=== PATIENT | male | born 1950 | race African-American/Black ===

== ENCOUNTER 2021-07-21 05:15 | Inpatient (IN) | payer MEDICARE, MEDICAID ==
[2021-07-21] VITALS (12 sets, daily range): BP systolic 100–153; BP diastolic 46–107
[~2021-07-21] VITALS: Ht 195.6 cm; Wt 96.6 kg
[~2021-07-21 05:15] MED LIST: ATOR40TA70 PO; CHOL100044 PO; DICL100G16 TP; IBUP-2030 PO; LISI40TA13 PO; VERA240C2 PO
[2021-07-21 06:00] LABS: CHLORIDE 107 mEq/L (98-107)
[2021-07-21 06:09] LABS: BASOPHILS % 0.6 % (0.0-2.0); EOSINOPHILS % 9.3 % (0.0-5.0); HEMATOCRIT. 42.8 % (42.0-52.0); LYMPHOCYTES % 35.2 % (20.0-50.0); MEAN CORPUSCULAR HEMOGLOBIN 28.5 pg (28.0-32.0); MEAN CORPUSCULAR VOLUME 81.2 fL (80.0-94.0); MEAN PLATELET VOLUME 9.3 fl (7.4-10.4); MONOCYTES % 9.5 % (2.0-8.0); NEUTROPHILS % 45.4 % (40.0-76.0); PLATELET 129 x1000/uL (130-400); RED BLOOD CELL COUNT 5.26 mill/uL (4.7-6.1); RED CELL DISTRIBUTION WIDTH 13.7 % (11.6-14.6)
[2021-07-21] MEDS ORDERED: LACTATED RINGERS 1,000 ML IV SCH (06:15)
[2021-07-21] MEDS ORDERED: LIDOCAINE HCL/EPINEPHRINE 1%-EPI 1:100,000 20 ML VIAL ONE (06:34)
[2021-07-21] MEDS ORDERED: GENTAMICIN SULF 40MG/ML 2ML VIAL ONE (06:34)
[2021-07-21] MEDS ORDERED: THROMBIN (BOVINE) 5000 UNITS/VIAL TOP ONE (06:35)
[2021-07-21 06:40] LABS: CLARITY URINE CLEAR (CLEAR); COLOR URINE YELLOW (YELLOW); KETONES URINE TRACE (NEGATIVE); LEUKOCYTE ESTERASE URINE NEGATIVE (NEGATIVE); NITRITE URINE NEGATIVE (NEGATIVE); OCCULT BLOOD URINE NEGATIVE (NEGATIVE); PH URINE 5.5 (4.5-8.0); PROTEIN URINE NEGATIVE (NEGATIVE); SPECIFIC GRAVITY URINE 1.025 (1.005-1.030)
[2021-07-21] MEDS ORDERED: NEOSTIGMINE METHYLSULFATE 1MG/ML 10 ML VIAL ONE (07:06)
[2021-07-21] MEDS ORDERED: ROCURONIUM BROMIDE 10MG/ML VIAL 5ML IV ONE ×2 (07:06→09:01)
[2021-07-21] MEDS ORDERED: FENTANYL CITRATE/PF 50MCG/ML 2ML VIAL ONE (07:06)
[2021-07-21] MEDS ORDERED: GLYCOPYRROLATE 0.2 MG/ML 2ML VIAL ONE ×3 (07:07→09:53)
[2021-07-21] MEDS ORDERED: MIDAZOLAM HCL 2 MG/2 ML VIAL ONE (07:07)
[2021-07-21] MEDS ORDERED: PROPOFOL 200MG/20ML VIAL IV ONE (07:07)
[2021-07-21] MEDS ORDERED: HYDROMORPHONE HCL/PF 2MG/ML (OR) ONE (07:36)
[2021-07-21] MEDS ORDERED: DEXAMETHASONE 4MG/ML 1ML VIAL ONE (07:36)
[2021-07-21] MEDS ORDERED: ONDANSETRON HCL 4MG/2ML INJ ONE (07:36)
[2021-07-21] MEDS ORDERED: MEPERIDINE HCL/PF 25MG/ML CPJ IV PRN (08:30)
[2021-07-21] MEDS ORDERED: ONDANSETRON HCL 4MG/2ML INJ IV PRN (08:30)
[2021-07-21] MEDS ORDERED: LABETALOL 5MG/ML SYR 20 MG/4 ML SYRINGE IV PRN (08:30)
[2021-07-21 08:32] LABS: BG BASE EXCESS -1.2 mmol/L (-2.0-2.0); BG CARBOXYHEMOGLOBIN 0.7 % (0.5-1.5); BG DEOXYHEMOGLOBIN 0.6 % (0.0-5.0); BG FRACTION INSPIRED OXYGEN 100; BG HCO3 ACT 24.7 mmol/L (22.0-26.0); BG METHEMOGLOBIN 0.4 % (0.0-1.5); BG OXYGEN SATURATION 99.4 % (92.0-98.5); BG OXYHEMOGLOBIN 98.3 % (94.0-97.0); BG PCO2 45.7 mmHg (35.0-45.0); BG PO2 330.5 mmHg (75.0-100.0); BG SAMPLE SITE ALINE; BG TOTAL HEMOGLOBIN 13.7 g/dL (12.0-18.0); BG VENT MODE VENT - AC
[2021-07-21] MEDS ORDERED: GABA-532 PO (09:42)
[2021-07-21] MEDS ORDERED: ATEN50TA PO (09:42)
[2021-07-21] MEDS ORDERED: NICARDIPINE 100 MG in SODIUM CHLORIDE 0.9% 60 ML IV PRN (10:00)
[2021-07-21] MEDS ORDERED: MORPHINE SULFATE 2 MG/ML CPJ (NOT FOR IM USE) IV PRN (10:00)
[2021-07-21] MEDS ORDERED: CLON0.2T PO (10:16)
[2021-07-21] MEDS: HYDROMORPHONE HCL/PF 2MG/ML CPJ IV PRN ×3 (10:23→15:59)
[2021-07-21] MEDS ORDERED: NALOXONE INJ IV PRN (11:15)
[2021-07-21] MEDS ORDERED: ONDANSETRON INJ IV PRN (11:15)
[2021-07-21] MEDS ORDERED: HYDROMORPHONE PCA 10MG/50ML IV PRN (11:15)
[2021-07-21] MEDS: DEXT 5%/LACTATED RINGERS 1,000 ML IV SCH (12:30)
[2021-07-21] MEDS ORDERED: CEFAZOLIN SODIUM 1000MG/VIAL IV SCH (14:00)
[2021-07-21] MEDS: CEFAZOLIN 1000MG PREMIX 50 ML IV SCH ×2 (15:18→23:14)
[2021-07-22] VITALS (60 sets, daily range): BP systolic 92–168; BP diastolic 42–98
[2021-07-22 07:06] LABS: BASOPHILS % 0.2 % (0.0-2.0); EOSINOPHILS % 0.1 % (0.0-5.0); HEMATOCRIT. 36.2 % (42.0-52.0); HEMOGLOBIN. 12.6 g/dL (14.0-18.0); LYMPHOCYTES % 8.4 % (20.0-50.0); MEAN CORPUSCULAR VOLUME 80.1 fL (80.0-94.0); MEAN PLATELET VOLUME 9.3 fl (7.4-10.4); MONOCYTES % 9.8 % (2.0-8.0); NEUTROPHILS % 81.5 % (40.0-76.0); PLATELET 118 x1000/uL (130-400); RED BLOOD CELL COUNT 4.52 mill/uL (4.7-6.1); RED CELL DISTRIBUTION WIDTH 13.5 % (11.6-14.6)
[2021-07-22 07:32] LABS: CHLORIDE 106 mEq/L (98-107)
[2021-07-22] MEDS: GABAPENTIN 300MG CAPSULE PO SCH ×3 (09:02→21:28)
[2021-07-22] MEDS: CHOLECALCIFEROL (D3) 1000 UNIT TABLET PO SCH (09:02)
[2021-07-22] MEDS: VERAPAMIL HCL 120MG TABLET PO SCH ×3 (09:03→21:29)
[2021-07-22] MEDS: ATENOLOL 50 MG TABLET PO SCH (09:03)
[2021-07-22] MEDS: LISINOPRIL 40MG TABLET PO SCH (09:03)
[2021-07-22] MEDS: CEFAZOLIN 1000MG PREMIX 50 ML IV SCH ×3 (09:04→21:33)
[2021-07-22] MEDS: DEXT 5%/LACTATED RINGERS 1,000 ML IV SCH ×2 (10:24→17:55)
[2021-07-22] MEDS: CLONIDINE 0.2MG TABLET PO SCH ×2 (14:00→21:28)
[2021-07-22] MEDS: ATORVASTATIN CALCIUM 40MG TABLET PO SCH (21:30)
[2021-07-23] VITALS (7 sets, daily range): BP systolic 93–146; BP diastolic 50–96
[2021-07-23] MEDS: DEXT 5%/LACTATED RINGERS 1,000 ML IV SCH (04:16)
[2021-07-23] MEDS: CEFAZOLIN 1000MG PREMIX 50 ML IV SCH (06:32)
[2021-07-23] MEDS: GABAPENTIN 300MG CAPSULE PO SCH ×3 (06:32→21:19)
[2021-07-23] MEDS: VERAPAMIL HCL 120MG TABLET PO SCH (06:33)
[2021-07-23] MEDS: CLONIDINE 0.2MG TABLET PO SCH (06:33)
[2021-07-23] MEDS: LISINOPRIL 40MG TABLET PO SCH (08:30)
[2021-07-23] MEDS: ATENOLOL 50 MG TABLET PO SCH (08:30)
[2021-07-23] MEDS: CHOLECALCIFEROL (D3) 1000 UNIT TABLET PO SCH (08:37)
[2021-07-23] MEDS: ACETAMINOPHEN 325MG TABLET PO PRN (08:37)
[2021-07-23] MEDS ORDERED: ATROPINE SULFATE 1MG/ML VIAL IV PRN (09:45)
[2021-07-23] MEDS ORDERED: ATROPINE SULFATE 1MG/ML VIAL IV NR (10:15)
[2021-07-23] MEDS: SODIUM CHLORIDE 0.45% 1,000 ML IV SCH ×2 (11:25→22:38)
[2021-07-23] MEDS ORDERED: NALOXONE HCL 0.4MG/ML VIAL IV PRN (11:45)
[2021-07-23] MEDS: DOPAMINE 400MG/250ML PREMIX 250 ML IV SCH (12:38)
[2021-07-23] MEDS ORDERED: CEFTRIAXONE 1,000 MG in DEXTROSE 5% WATER 50 ML IV SCH (15:00)
[2021-07-23] MEDS: ATORVASTATIN CALCIUM 40MG TABLET PO SCH (21:19)
[2021-07-23] MEDS: HYDROCODONE/ACETAMINOPHEN 5/325MG TABLET PO PRN (23:04)
[2021-07-24] VITALS (12 sets, daily range): BP systolic 129–165; BP diastolic 72–98
[2021-07-24] MEDS: DOPAMINE 400MG/250ML PREMIX 250 ML IV SCH ×2 (01:31→16:14)
[2021-07-24] MEDS: HYDROCODONE/ACETAMINOPHEN 5/325MG TABLET PO PRN ×3 (06:21→20:44)
[2021-07-24] MEDS: GABAPENTIN 300MG CAPSULE PO SCH ×3 (06:21→23:16)
[2021-07-24] MEDS: CHOLECALCIFEROL (D3) 1000 UNIT TABLET PO SCH (08:33)
[2021-07-24] MEDS: LISINOPRIL 40MG TABLET PO SCH (08:33)
[2021-07-24 08:34] LABS: BASOPHILS % 0.2 % (0.0-2.0); EOSINOPHILS % 0.9 % (0.0-5.0); HEMATOCRIT. 33.2 % (42.0-52.0); HEMOGLOBIN. 11.8 g/dL (14.0-18.0); LYMPHOCYTES % 12.4 % (20.0-50.0); MEAN CORPUSCULAR HEMOGLOBIN 28.6 pg (28.0-32.0); MEAN CORPUSCULAR VOLUME 80.8 fL (80.0-94.0); MEAN PLATELET VOLUME 9.3 fl (7.4-10.4); MONOCYTES % 12.1 % (2.0-8.0); NEUTROPHILS % 74.4 % (40.0-76.0); PLATELET 106 x1000/uL (130-400); RED BLOOD CELL COUNT 4.11 mill/uL (4.7-6.1); RED CELL DISTRIBUTION WIDTH 13.3 % (11.6-14.6)
[2021-07-24] MEDS: ACETAMINOPHEN 325MG TABLET PO PRN (08:39)
[2021-07-24 09:12] LABS: CHLORIDE 103 mEq/L (98-107)
[2021-07-24] MEDS: SODIUM CHLORIDE 0.45% 1,000 ML IV SCH (11:00)
[2021-07-24] MEDS: AMLODIPINE 5MG TABLET PO SCH ×2 (11:21→20:44)
[2021-07-24 18:40] LABS: T4 FREE 1.02 ng/dL (0.76-1.46)
[2021-07-24] MEDS: ATORVASTATIN CALCIUM 40MG TABLET PO SCH (20:43)
[2021-07-25] VITALS (13 sets, daily range): BP systolic 125–185; BP diastolic 71–98
[2021-07-25] MEDS: ACETAMINOPHEN 325MG TABLET PO PRN (00:23)
[2021-07-25] MEDS: SODIUM CHLORIDE 0.45% 1,000 ML IV SCH ×2 (00:23→13:25)
[2021-07-25] MEDS: HYDROCODONE/ACETAMINOPHEN 5/325MG TABLET PO PRN ×3 (04:15→20:04)
[2021-07-25] MEDS: GABAPENTIN 300MG CAPSULE PO SCH ×3 (06:04→21:21)
[2021-07-25 07:42] LABS: CHLORIDE 104 mEq/L (98-107)
[2021-07-25] MEDS ORDERED: POLYETHYLENE GLYCOL 3350 (17GM) 1 DOSE PACK PO SCH (09:00)
[2021-07-25] MEDS: AMLODIPINE 5MG TABLET PO SCH ×2 (09:06→21:22)
[2021-07-25] MEDS: LISINOPRIL 40MG TABLET PO SCH (09:06)
[2021-07-25] MEDS: CHOLECALCIFEROL (D3) 1000 UNIT TABLET PO SCH (09:07)
[2021-07-25] MEDS: ATORVASTATIN CALCIUM 40MG TABLET PO SCH (21:21)
[2021-07-26] VITALS (9 sets, daily range): BP systolic 146–194; BP diastolic 72–99
[2021-07-26] MEDS: SODIUM CHLORIDE 0.45% 1,000 ML IV SCH ×2 (00:52→13:27)
[2021-07-26] MEDS: GABAPENTIN 300MG CAPSULE PO SCH ×3 (05:21→20:40)
[2021-07-26] MEDS: HYDROCODONE/ACETAMINOPHEN 5/325MG TABLET PO PRN ×2 (05:22→10:08)
[2021-07-26] MEDS: CHOLECALCIFEROL (D3) 1000 UNIT TABLET PO SCH (08:49)
[2021-07-26] MEDS: AMLODIPINE 5MG TABLET PO SCH ×2 (08:49→20:41)
[2021-07-26] MEDS: LISINOPRIL 40MG TABLET PO SCH (08:49)
[2021-07-26] MEDS ORDERED: AMLO5TAB88 PO (09:35)
[2021-07-26] MEDS: MORPHINE SULFATE 2 MG/ML CPJ (NOT FOR IM USE) IV PRN ×2 (12:31→21:04)
[2021-07-26] MEDS: HYDROCODONE/ACETAMINOPHEN 10/325MG TABLET PO PRN ×2 (17:36→23:41)
[2021-07-26] MEDS: METHYL SALICYLATE/MENTHOL CREAM 85GM TOP SCH ×2 (17:36→21:03)
[2021-07-26] MEDS: LACTULOSE 20G/30ML UDC PO SCH ×2 (17:36→20:40)
[2021-07-26] MEDS: LIDOCAINE 5% PATCH TOP SCH (17:36)
[2021-07-26] MEDS: HYDRALAZINE HCL 25MG TABLET PO SCH ×2 (17:36→20:41)
[2021-07-26] MEDS: ATORVASTATIN CALCIUM 40MG TABLET PO SCH (20:41)
[2021-07-27] VITALS (8 sets, daily range): BP systolic 138–193; BP diastolic 72–107
[2021-07-27] MEDS: SODIUM CHLORIDE 0.45% 1,000 ML IV SCH ×2 (02:20→14:03)
[2021-07-27] MEDS ORDERED: AMLODIPINE 10MG TABLET PO PRN (04:45)
[2021-07-27] MEDS: GABAPENTIN 300MG CAPSULE PO SCH ×2 (05:13→14:20)
[2021-07-27] MEDS: HYDRALAZINE HCL 25MG TABLET PO SCH (05:13)
[2021-07-27] MEDS: MORPHINE SULFATE 2 MG/ML CPJ (NOT FOR IM USE) IV PRN ×2 (05:37→11:47)
[2021-07-27] MEDS: LACTULOSE 20G/30ML UDC PO SCH ×2 (08:18→13:00)
[2021-07-27] MEDS: CHOLECALCIFEROL (D3) 1000 UNIT TABLET PO SCH (08:18)
[2021-07-27] MEDS: LISINOPRIL 40MG TABLET PO SCH (08:18)
[2021-07-27] MEDS: HYDROCODONE/ACETAMINOPHEN 5/325MG TABLET PO PRN ×2 (08:19→15:52)
[2021-07-27] MEDS: METHYL SALICYLATE/MENTHOL CREAM 85GM TOP SCH ×3 (08:19→17:39)
[2021-07-27] MEDS ORDERED: AMLODIPINE 10MG TABLET PO SCH (09:00)
[2021-07-27] MEDS: LIDOCAINE 5% PATCH TOP SCH (12:20)
[2021-07-27] MEDS ORDERED: HYDRALAZINE HCL 50MG TABLET PO SCH (14:00)
[2021-07-27] MEDS ORDERED: AMLODIPINE 5MG TABLET PO SCH (21:00)
== END 2021-07-27 18:31 | DRG 459 ==
LOC: OR 05:15 → MICUSO 21:00 → 7EST 07-22 15:12 → 5EST 07-23 10:05
PROVIDERS: ADMIT Internal Medicine; ATTEND Neurological Surgery
PROC: 0SG10K1 Fusion of 2 or more Lumbar Vertebral Joints with Nonautologous Tissue Substitute, Posterior Approach, Posterior Column, Open Approach (ICD-10-PCS; principal; 2021-07-21)
PROC: 01NB0ZZ Release Lumbar Nerve, Open Approach (ICD-10-PCS; 2021-07-21)
PROC: 4A11X4G Monitoring of Peripheral Nervous Electrical Activity, Intraoperative, External Approach (ICD-10-PCS; 2021-07-21)
DX: M48.062 Spinal stenosis, lumbar region with neurogenic claudication (principal); R57.0 Cardiogenic shock; J18.9 Pneumonia, unspecified organism; G82.20 Paraplegia, unspecified; M47.16 Other spondylosis with myelopathy, lumbar region; I44.2 Atrioventricular block, complete; J98.11 Atelectasis; I10 Essential (primary) hypertension; E78.5 Hyperlipidemia, unspecified; R26.89 Other abnormalities of gait and mobility; E05.90 Thyrotoxicosis, unspecified without thyrotoxic crisis or storm; R00.1 Bradycardia, unspecified; Z20.822 Contact with and (suspected) exposure to COVID-19; G89.29 Other chronic pain; D64.9 Anemia, unspecified; R53.81 Other malaise; R26.9 Unspecified abnormalities of gait and mobility; M25.461 Effusion, right knee; Z82.49 Family history of ischemic heart disease and other diseases of the circulatory system; Z79.899 Other long term (current) drug therapy
CPT/HCPCS: 36415; 36600; 71045; 72100; 73560; 76000; 80048; 81003; 82375; 82805; 83735; 84145; 84439; 84443; 84481; 85025; 86850; 86900; 87426; 93005; 93306; 95863; 95925; 95926; 95928; 95929; 97163; 97164; 97166; 97168; 97530; C1713; C1893; J0461; J0690; J0696; J1100; J1170; J1265; J1580; J2250; J2270; J2405; J2704; J2710; J3010; J3490; J7050; J7060; J7121; C1762

== ENCOUNTER 2021-07-27 18:30 | Inpatient (IN) | payer MEDICARE, OTHER ==
[~2021-07-27] VITALS: Ht 195.6 cm; Wt 99.6 kg
[~2021-07-27 18:30] MED LIST changes: +AMLO5TAB88 PO; +GABA-532 PO; -IBUP-2030 PO; -VERA240C2 PO
[2021-07-27 19:30] VITALS: BP 149/78
[2021-07-27 20:00] VITALS: BP 149/78
[2021-07-27] MEDS ORDERED: NALOXONE HCL 0.4 MG/ML 1ML VIAL IV PRN (21:45)
[2021-07-27] MEDS ORDERED: MORPHINE SULFATE 2 MG/ML CPJ (NOT FOR IM USE) IV PRN (23:32)
[2021-07-27] MEDS: ATORVASTATIN CALCIUM 40MG TABLET PO SCH (23:52)
[2021-07-28] MEDS: GABAPENTIN 300MG CAPSULE PO SCH ×4 (00:01→21:39)
[2021-07-28] MEDS: HYDROCODONE/ACETAMINOPHEN 10/325MG TABLET PO PRN ×3 (00:01→20:22)
[2021-07-28] MEDS: HYDRALAZINE HCL 50MG TABLET PO SCH ×3 (04:57→21:40)
[2021-07-28 06:49] LABS: BASOPHILS % 0.4 % (0.0-2.0); EOSINOPHILS % 7.2 % (0.0-5.0); HEMATOCRIT. 37.3 % (42.0-52.0); HEMOGLOBIN. 12.8 g/dL (14.0-18.0); LYMPHOCYTES % 24.7 % (20.0-50.0); MEAN CORPUSCULAR HEMOGLOBIN 27.9 pg (28.0-32.0); MEAN CORPUSCULAR VOLUME 81.4 fL (80.0-94.0); MEAN PLATELET VOLUME 9.2 fl (7.4-10.4); MONOCYTES % 10.8 % (2.0-8.0); NEUTROPHILS % 56.9 % (40.0-76.0); PLATELET 170 x1000/uL (130-400); RED BLOOD CELL COUNT 4.58 mill/uL (4.7-6.1); RED CELL DISTRIBUTION WIDTH 13.1 % (11.6-14.6)
[2021-07-28] MEDS: METHYL SALICYLATE/MENTHOL CREAM 85GM TOP SCH ×4 (06:51→21:39)
[2021-07-28 06:58] LABS: CHLORIDE 101 mEq/L (98-107)
[2021-07-28 08:00] VITALS: BP 151/87
[2021-07-28] MEDS: LISINOPRIL 40MG TABLET PO SCH (08:16)
[2021-07-28] MEDS: CHOLECALCIFEROL (D3) 1000 UNIT TABLET PO SCH (08:16)
[2021-07-28] MEDS: LACTULOSE 20G/30ML UDC PO SCH ×4 (08:16→20:22)
[2021-07-28] MEDS: LIDOCAINE 5% PATCH TOP SCH (08:20)
[2021-07-28] MEDS: AMLODIPINE 5MG TABLET PO SCH ×2 (08:27→20:22)
[2021-07-28] MEDS: AMLODIPINE 10MG TABLET PO PRN ×2 (15:41→22:43)
[2021-07-28] MEDS: HYDROCODONE/ACETAMINOPHEN 5/325MG TABLET PO PRN (15:42)
[2021-07-28 16:00] VITALS: BP 170/100
[2021-07-28 16:30] VITALS: BP 143/78
[2021-07-28] MEDS: DOCUSATE SODIUM 100MG CAPSULE PO SCH (17:32)
[2021-07-28 20:00] VITALS: BP 167/97
[2021-07-28] MEDS: POLYETHYLENE GLYCOL 3350 (17GM) 1 DOSE PACK PO SCH (20:22)
[2021-07-28] MEDS: ATORVASTATIN CALCIUM 40MG TABLET PO SCH (20:22)
[2021-07-28] MEDS ORDERED: NA PHOS,M-B/NA PHOS,DI-BA ENEMA 118ML PR NR (22:45)
[2021-07-29 00:20] VITALS: BP 141/78
[2021-07-29] MEDS: HYDROCODONE/ACETAMINOPHEN 10/325MG TABLET PO PRN ×4 (02:48→23:33)
[2021-07-29] MEDS: HYDRALAZINE HCL 50MG TABLET PO SCH ×3 (05:44→21:27)
[2021-07-29] MEDS: GABAPENTIN 300MG CAPSULE PO SCH ×3 (05:45→21:26)
[2021-07-29 08:00] VITALS: BP 146/71
[2021-07-29] MEDS: LACTULOSE 20G/30ML UDC PO SCH ×4 (08:53→20:24)
[2021-07-29] MEDS: METHYL SALICYLATE/MENTHOL CREAM 85GM TOP SCH ×4 (08:53→20:23)
[2021-07-29] MEDS: LIDOCAINE 5% PATCH TOP SCH (08:54)
[2021-07-29] MEDS: CHOLECALCIFEROL (D3) 1000 UNIT TABLET PO SCH (08:54)
[2021-07-29] MEDS: AMLODIPINE 5MG TABLET PO SCH ×2 (08:54→20:24)
[2021-07-29] MEDS: DOCUSATE SODIUM 100MG CAPSULE PO SCH ×2 (08:54→16:34)
[2021-07-29] MEDS: LISINOPRIL 40MG TABLET PO SCH (08:55)
[2021-07-29] MEDS ORDERED: SORBITOL 70% SOLN 30ML PO SCH (10:30)
[2021-07-29] MEDS ORDERED: BISACODYL 10MG SUPP PR SCH (10:30)
[2021-07-29 20:00] VITALS: BP 125/60
[2021-07-29] MEDS: ATORVASTATIN CALCIUM 40MG TABLET PO SCH (20:23)
[2021-07-29] MEDS: POLYETHYLENE GLYCOL 3350 (17GM) 1 DOSE PACK PO SCH (20:23)
[2021-07-29] MEDS ORDERED: MAGNESIUM HYDROXIDE 400MG/5ML 30ML UDC PO NR (23:25)
[2021-07-30] MEDS: HYDROCODONE/ACETAMINOPHEN 10/325MG TABLET PO PRN ×3 (05:36→19:24)
[2021-07-30] MEDS: GABAPENTIN 300MG CAPSULE PO SCH ×3 (05:36→21:18)
[2021-07-30] MEDS: HYDRALAZINE HCL 50MG TABLET PO SCH ×3 (05:36→22:00)
[2021-07-30 08:00] VITALS: BP 106/62
[2021-07-30] MEDS: LACTULOSE 20G/30ML UDC PO SCH ×4 (08:39→21:18)
[2021-07-30] MEDS: DOCUSATE SODIUM 100MG CAPSULE PO SCH (08:39)
[2021-07-30] MEDS: AMLODIPINE 5MG TABLET PO SCH ×2 (08:40→21:21)
[2021-07-30] MEDS: CHOLECALCIFEROL (D3) 1000 UNIT TABLET PO SCH (08:41)
[2021-07-30] MEDS: LISINOPRIL 40MG TABLET PO SCH (08:41)
[2021-07-30] MEDS: LIDOCAINE 5% PATCH TOP SCH (08:43)
[2021-07-30] MEDS: HYDROCODONE/ACETAMINOPHEN 5/325MG TABLET PO PRN ×2 (08:45→16:41)
[2021-07-30] MEDS ORDERED: BISACODYL 10MG SUPP PR PRN (14:00)
[2021-07-30] MEDS ORDERED: NA PHOS,M-B/NA PHOS,DI-BA ENEMA 118ML PR NR (14:00)
[2021-07-30] MEDS ORDERED: SENNOSIDES 8.6MG TABLET PO PRN (14:30)
[2021-07-30] MEDS ORDERED: NA PHOS,M-B/NA PHOS,DI-BA ENEMA 118ML PR PRN (15:00)
[2021-07-30] MEDS ORDERED: NA PHOS,M-B/NA PHOS,DI-BA ENEMA 118ML PR SCH (16:00)
[2021-07-30] MEDS ORDERED: MAGNESIUM CITRATE 300ML SOLUTION PO NR (16:00)
[2021-07-30] MEDS ORDERED: NA PHOS,M-B/NA PHOS,DI-BA ENEMA 118ML RC NR (16:15)
[2021-07-30] MEDS: METHYL SALICYLATE/MENTHOL CREAM 85GM TOP SCH ×4 (16:36→21:00)
[2021-07-30] MEDS: BISACODYL 5MG TABLET PO SCH (16:38)
[2021-07-30] MEDS ORDERED: DOCUSATE SODIUM 100MG CAPSULE PO SCH (17:00)
[2021-07-30 20:00] VITALS: BP 128/77
[2021-07-30] MEDS: ATORVASTATIN CALCIUM 40MG TABLET PO SCH (21:18)
[2021-07-30] MEDS: POLYETHYLENE GLYCOL 3350 (17GM) 1 DOSE PACK PO SCH (21:19)
[2021-07-30] MEDS: AMLODIPINE 10MG TABLET PO PRN (21:19)
[2021-07-31] MEDS: HYDROCODONE/ACETAMINOPHEN 10/325MG TABLET PO PRN ×3 (02:23→15:58)
[2021-07-31] MEDS: HYDRALAZINE HCL 50MG TABLET PO SCH ×3 (05:37→22:50)
[2021-07-31] MEDS: GABAPENTIN 300MG CAPSULE PO SCH ×3 (05:38→22:50)
[2021-07-31 07:04] LABS: BASOPHILS % 0.3 % (0.0-2.0); EOSINOPHILS % 6.9 % (0.0-5.0); HEMATOCRIT. 35.9 % (42.0-52.0); HEMOGLOBIN. 12.4 g/dL (14.0-18.0); LYMPHOCYTES % 29.3 % (20.0-50.0); MEAN CORPUSCULAR VOLUME 80.9 fL (80.0-94.0); MEAN PLATELET VOLUME 8.4 fl (7.4-10.4); MONOCYTES % 11.2 % (2.0-8.0); NEUTROPHILS % 52.3 % (40.0-76.0); PLATELET 230 x1000/uL (130-400); RED BLOOD CELL COUNT 4.43 mill/uL (4.7-6.1)
[2021-07-31 07:08] LABS: CHLORIDE 101 mEq/L (98-107)
[2021-07-31 07:16] LABS: TOTAL IRON BINDING CAPACITY 147 ug/dL (250-450)
[2021-07-31 07:31] LABS: FOLIC ACID (FOLATE) SERUM 15.5 ng/mL (>5.38)
[2021-07-31 07:48] VITALS: BP 143/76
[2021-07-31] MEDS: CHOLECALCIFEROL (D3) 1000 UNIT TABLET PO SCH (08:19)
[2021-07-31] MEDS: LACTULOSE 20G/30ML UDC PO SCH ×4 (08:19→21:15)
[2021-07-31] MEDS: AMLODIPINE 5MG TABLET PO SCH ×2 (08:19→21:14)
[2021-07-31] MEDS: LISINOPRIL 40MG TABLET PO SCH (08:20)
[2021-07-31] MEDS: LIDOCAINE 5% PATCH TOP SCH (08:20)
[2021-07-31] MEDS: BISACODYL 5MG TABLET PO SCH (08:20)
[2021-07-31] MEDS: METHYL SALICYLATE/MENTHOL CREAM 85GM TOP SCH ×5 (08:36→21:23)
[2021-07-31] MEDS ORDERED: MAGNESIUM CITRATE 300ML SOLUTION PO SCH (11:15)
[2021-07-31] MEDS: ACETAMINOPHEN 325MG TABLET PO PRN (12:02)
[2021-07-31] MEDS ORDERED: BISACODYL 10MG SUPP PR PRN (14:00)
[2021-07-31] MEDS ORDERED: BISACODYL 10MG SUPP PR NR (15:15)
[2021-07-31] MEDS ORDERED: MAGNESIUM CITRATE 300ML SOLUTION PO NR (16:00)
[2021-07-31] MEDS: DOCUSATE SODIUM 100MG CAPSULE PO SCH (17:22)
[2021-07-31 20:00] VITALS: BP 130/61
[2021-07-31] MEDS ORDERED: SENNOSIDES 8.6MG TABLET PO PRN (21:00)
[2021-07-31] MEDS: ATORVASTATIN CALCIUM 40MG TABLET PO SCH (21:14)
[2021-07-31] MEDS: POLYETHYLENE GLYCOL 3350 (17GM) 1 DOSE PACK PO SCH (21:15)
[2021-08-01] MEDS: HYDRALAZINE HCL 50MG TABLET PO SCH ×3 (06:00→21:08)
[2021-08-01] MEDS: GABAPENTIN 300MG CAPSULE PO SCH ×3 (06:14→21:09)
[2021-08-01 08:00] VITALS: BP 110/65
[2021-08-01] MEDS: METHYL SALICYLATE/MENTHOL CREAM 85GM TOP SCH ×4 (09:00→21:00)
[2021-08-01] MEDS: DOCUSATE SODIUM 100MG CAPSULE PO SCH ×2 (09:47→18:00)
[2021-08-01] MEDS: CHOLECALCIFEROL (D3) 1000 UNIT TABLET PO SCH (09:47)
[2021-08-01] MEDS: LIDOCAINE 5% PATCH TOP SCH (09:47)
[2021-08-01] MEDS: LISINOPRIL 40MG TABLET PO SCH (09:47)
[2021-08-01] MEDS: AMLODIPINE 5MG TABLET PO SCH ×2 (09:47→21:00)
[2021-08-01] MEDS: HYDROCODONE/ACETAMINOPHEN 10/325MG TABLET PO PRN (11:32)
[2021-08-01] MEDS: HYDROCODONE/ACETAMINOPHEN 5/325MG TABLET PO PRN (14:24)
[2021-08-01] MEDS: ACETAMINOPHEN 325MG TABLET PO PRN (18:15)
[2021-08-01 20:00] VITALS: BP 106/66
[2021-08-01] MEDS: POLYETHYLENE GLYCOL 3350 (17GM) 1 DOSE PACK PO SCH (21:09)
[2021-08-01] MEDS: ATORVASTATIN CALCIUM 40MG TABLET PO SCH (21:09)
[2021-08-02] MEDS ORDERED: HYDROCODONE/ACETAMINOPHEN 5/325MG TABLET PO PRN (01:15)
[2021-08-02] MEDS: HYDRALAZINE HCL 50MG TABLET PO SCH ×3 (05:30→22:39)
[2021-08-02] MEDS: GABAPENTIN 300MG CAPSULE PO SCH ×3 (05:32→22:39)
[2021-08-02 07:07] LABS: BASOPHILS % 0.4 % (0.0-2.0); EOSINOPHILS % 5.3 % (0.0-5.0); HEMATOCRIT. 34.8 % (42.0-52.0); HEMOGLOBIN. 11.8 g/dL (14.0-18.0); LYMPHOCYTES % 30.3 % (20.0-50.0); MEAN CORPUSCULAR HEMOGLOBIN 27.2 pg (28.0-32.0); MEAN PLATELET VOLUME 8.5 fl (7.4-10.4); MONOCYTES % 9.1 % (2.0-8.0); NEUTROPHILS % 54.9 % (40.0-76.0); PLATELET 249 x1000/uL (130-400); RED BLOOD CELL COUNT 4.35 mill/uL (4.7-6.1); RED CELL DISTRIBUTION WIDTH 13.4 % (11.6-14.6)
[2021-08-02 07:20] LABS: CHLORIDE 101 mEq/L (98-107)
[2021-08-02] MEDS: ACETAMINOPHEN 325MG TABLET PO PRN ×2 (08:13→09:13)
[2021-08-02 08:40] VITALS: BP 134/73
[2021-08-02] MEDS: LISINOPRIL 40MG TABLET PO SCH (08:59)
[2021-08-02] MEDS: LIDOCAINE 5% PATCH TOP SCH (09:01)
[2021-08-02] MEDS: DOCUSATE SODIUM 100MG CAPSULE PO SCH ×2 (09:01→18:32)
[2021-08-02] MEDS: CHOLECALCIFEROL (D3) 1000 UNIT TABLET PO SCH (09:06)
[2021-08-02] MEDS: AMLODIPINE 5MG TABLET PO SCH ×2 (09:09→22:40)
[2021-08-02] MEDS ORDERED: LACTULOSE 20G/30ML UDC PO PRN (11:30)
[2021-08-02] MEDS ORDERED: NALOXONE HCL 0.4MG/ML VIAL IV PRN (11:45)
[2021-08-02] MEDS: HYDROCODONE/ACETAMINOPHEN 5/325MG TABLET PO PRN (13:04)
[2021-08-02] MEDS: TRAMADOL 50MG TABLET PO PRN (18:33)
[2021-08-02 20:00] VITALS: BP 110/60
[2021-08-02] MEDS: METHYL SALICYLATE/MENTHOL CREAM 85GM TOP SCH (21:00)
[2021-08-02] MEDS: POLYETHYLENE GLYCOL 3350 (17GM) 1 DOSE PACK PO SCH (22:39)
[2021-08-02] MEDS: ATORVASTATIN CALCIUM 40MG TABLET PO SCH (22:39)
[2021-08-03 04:07] VITALS: BP 104/67
[2021-08-03] MEDS: ACETAMINOPHEN 325MG TABLET PO PRN (04:08)
[2021-08-03] MEDS: HYDRALAZINE HCL 50MG TABLET PO SCH ×3 (05:39→22:00)
[2021-08-03] MEDS: GABAPENTIN 300MG CAPSULE PO SCH ×3 (06:17→22:17)
[2021-08-03 08:20] VITALS: BP 190/73
[2021-08-03] MEDS: HYDROCODONE/ACETAMINOPHEN 5/325MG TABLET PO PRN ×2 (08:31→19:14)
[2021-08-03] MEDS: CHOLECALCIFEROL (D3) 1000 UNIT TABLET PO SCH (08:31)
[2021-08-03] MEDS: DOCUSATE SODIUM 100MG CAPSULE PO SCH ×2 (08:32→17:00)
[2021-08-03] MEDS: AMLODIPINE 5MG TABLET PO SCH ×2 (08:32→22:18)
[2021-08-03] MEDS: LISINOPRIL 40MG TABLET PO SCH (08:32)
[2021-08-03] MEDS: LIDOCAINE 5% PATCH TOP SCH (08:33)
[2021-08-03] MEDS: METHYL SALICYLATE/MENTHOL CREAM 85GM TOP SCH ×4 (08:44→21:00)
[2021-08-03 20:00] VITALS: BP 155/80
[2021-08-03] MEDS: POLYETHYLENE GLYCOL 3350 (17GM) 1 DOSE PACK PO SCH (22:17)
[2021-08-03] MEDS: ATORVASTATIN CALCIUM 40MG TABLET PO SCH (22:18)
[2021-08-04] MEDS: HYDROCODONE/ACETAMINOPHEN 5/325MG TABLET PO PRN ×3 (03:41→21:13)
[2021-08-04] MEDS: HYDRALAZINE HCL 50MG TABLET PO SCH ×3 (05:20→21:13)
[2021-08-04] MEDS: GABAPENTIN 300MG CAPSULE PO SCH (06:22)
[2021-08-04 08:30] VITALS: BP 130/79
[2021-08-04] MEDS: AMLODIPINE 5MG TABLET PO SCH ×2 (09:53→21:13)
[2021-08-04] MEDS: DOCUSATE SODIUM 100MG CAPSULE PO SCH ×2 (09:53→17:32)
[2021-08-04] MEDS: CHOLECALCIFEROL (D3) 1000 UNIT TABLET PO SCH (09:53)
[2021-08-04] MEDS: LISINOPRIL 40MG TABLET PO SCH (09:53)
[2021-08-04] MEDS: TRAMADOL 50MG TABLET PO PRN (09:54)
[2021-08-04] MEDS: LIDOCAINE 5% PATCH TOP SCH (09:55)
[2021-08-04] MEDS: METHYL SALICYLATE/MENTHOL CREAM 85GM TOP SCH ×4 (10:00→21:17)
[2021-08-04 20:00] VITALS: BP 123/64
[2021-08-04] MEDS: POLYETHYLENE GLYCOL 3350 (17GM) 1 DOSE PACK PO SCH (21:00)
[2021-08-04] MEDS: GABAPENTIN 400MG CAPSULE PO SCH (21:12)
[2021-08-04] MEDS: ATORVASTATIN CALCIUM 40MG TABLET PO SCH (21:12)
[2021-08-05] MEDS: ACETAMINOPHEN 325MG TABLET PO PRN (03:28)
[2021-08-05] MEDS: GABAPENTIN 400MG CAPSULE PO SCH ×3 (05:33→21:25)
[2021-08-05] MEDS: HYDRALAZINE HCL 50MG TABLET PO SCH ×3 (05:33→21:26)
[2021-08-05] MEDS: TRAMADOL 50MG TABLET PO PRN ×2 (05:34→14:01)
[2021-08-05] MEDS: LIDOCAINE 5% PATCH TOP SCH (08:06)
[2021-08-05] MEDS: METHYL SALICYLATE/MENTHOL CREAM 85GM TOP SCH ×4 (08:06→21:28)
[2021-08-05] MEDS: LISINOPRIL 40MG TABLET PO SCH (08:09)
[2021-08-05] MEDS: CHOLECALCIFEROL (D3) 1000 UNIT TABLET PO SCH (08:09)
[2021-08-05] MEDS: AMLODIPINE 5MG TABLET PO SCH ×2 (08:10→21:27)
[2021-08-05] MEDS: DOCUSATE SODIUM 100MG CAPSULE PO SCH ×2 (08:10→19:00)
[2021-08-05 08:15] VITALS: BP 123/78
[2021-08-05] MEDS: HYDROCODONE/ACETAMINOPHEN 5/325MG TABLET PO PRN ×2 (10:16→19:02)
[2021-08-05 20:00] VITALS: BP 121/61
[2021-08-05] MEDS: POLYETHYLENE GLYCOL 3350 (17GM) 1 DOSE PACK PO SCH (21:00)
[2021-08-05] MEDS: ATORVASTATIN CALCIUM 40MG TABLET PO SCH (21:26)
[2021-08-06] MEDS: TRAMADOL 50MG TABLET PO PRN ×4 (01:05→21:04)
[2021-08-06] MEDS: HYDRALAZINE HCL 50MG TABLET PO SCH ×3 (05:07→21:55)
[2021-08-06] MEDS: GABAPENTIN 400MG CAPSULE PO SCH ×3 (05:22→23:50)
[2021-08-06] MEDS: HYDROCODONE/ACETAMINOPHEN 5/325MG TABLET PO PRN ×3 (05:23→18:56)
[2021-08-06 06:24] LABS: CHLORIDE 102 mEq/L (98-107)
[2021-08-06 06:29] LABS: BASOPHILS % 0.6 % (0.0-2.0); EOSINOPHILS % 6.1 % (0.0-5.0); HEMATOCRIT. 36.6 % (42.0-52.0); HEMOGLOBIN. 12.6 g/dL (14.0-18.0); LYMPHOCYTES % 40.7 % (20.0-50.0); MEAN CORPUSCULAR HEMOGLOBIN 27.7 pg (28.0-32.0); MEAN CORPUSCULAR VOLUME 80.8 fL (80.0-94.0); MEAN PLATELET VOLUME 8.8 fl (7.4-10.4); MONOCYTES % 9.1 % (2.0-8.0); NEUTROPHILS % 43.5 % (40.0-76.0); PLATELET 254 x1000/uL (130-400); RED BLOOD CELL COUNT 4.54 mill/uL (4.7-6.1); RED CELL DISTRIBUTION WIDTH 13.1 % (11.6-14.6)
[2021-08-06 07:57] VITALS: BP 128/76
[2021-08-06] MEDS: DOCUSATE SODIUM 100MG CAPSULE PO SCH ×2 (08:15→16:53)
[2021-08-06] MEDS: AMLODIPINE 5MG TABLET PO SCH ×2 (08:17→21:02)
[2021-08-06] MEDS: CHOLECALCIFEROL (D3) 1000 UNIT TABLET PO SCH (08:17)
[2021-08-06] MEDS: LISINOPRIL 40MG TABLET PO SCH (08:18)
[2021-08-06] MEDS: LIDOCAINE 5% PATCH TOP SCH (08:30)
[2021-08-06] MEDS: METHYL SALICYLATE/MENTHOL CREAM 85GM TOP SCH ×4 (11:53→21:02)
[2021-08-06 17:10] LABS: 25-HYDROXY VITAMIN D3 29 ng/mL (.)
[2021-08-06] MEDS: LACTULOSE 20G/30ML UDC PO PRN (18:57)
[2021-08-06 20:00] VITALS: BP 104/48
[2021-08-06] MEDS: ATORVASTATIN CALCIUM 40MG TABLET PO SCH (21:01)
[2021-08-06] MEDS: POLYETHYLENE GLYCOL 3350 (17GM) 1 DOSE PACK PO SCH ×2 (21:02→21:28)
[2021-08-07] MEDS: GABAPENTIN 400MG CAPSULE PO SCH ×3 (06:44→21:18)
[2021-08-07] MEDS: HYDROCODONE/ACETAMINOPHEN 5/325MG TABLET PO PRN ×2 (06:44→17:17)
[2021-08-07] MEDS: HYDRALAZINE HCL 50MG TABLET PO SCH ×3 (06:45→21:21)
[2021-08-07 08:00] VITALS: BP 134/77
[2021-08-07] MEDS ORDERED: ERGOCALCIFEROL 50000UNITS CAPSULE PO SCH (09:00)
[2021-08-07] MEDS ORDERED: NA PHOS,M-B/NA PHOS,DI-BA ENEMA 118ML PR SCH (09:00)
[2021-08-07] MEDS: DOCUSATE SODIUM 100MG CAPSULE PO SCH ×2 (09:02→17:16)
[2021-08-07] MEDS: AMLODIPINE 5MG TABLET PO SCH ×2 (09:03→21:00)
[2021-08-07] MEDS: LISINOPRIL 40MG TABLET PO SCH (09:05)
[2021-08-07] MEDS: TRAMADOL 50MG TABLET PO PRN ×2 (09:09→18:26)
[2021-08-07] MEDS: LIDOCAINE 5% PATCH TOP SCH (09:09)
[2021-08-07] MEDS: METHYL SALICYLATE/MENTHOL CREAM 85GM TOP SCH ×4 (09:10→21:00)
[2021-08-07] MEDS: LACTULOSE 20G/30ML UDC PO SCH ×3 (11:48→17:16)
[2021-08-07] MEDS ORDERED: NALOXONE HCL 0.4MG/ML VIAL IV PRN (17:15)
[2021-08-07 20:00] VITALS: BP 110/65
[2021-08-07] MEDS: ATORVASTATIN CALCIUM 40MG TABLET PO SCH (21:18)
[2021-08-08] MEDS: HYDROCODONE/ACETAMINOPHEN 5/325MG TABLET PO PRN ×3 (02:38→17:21)
[2021-08-08] MEDS: GABAPENTIN 400MG CAPSULE PO SCH ×3 (05:59→22:02)
[2021-08-08] MEDS: HYDRALAZINE HCL 50MG TABLET PO SCH ×3 (06:00→22:00)
[2021-08-08 07:28] LABS: BASOPHILS % 0.3 % (0.0-2.0); EOSINOPHILS % 6.5 % (0.0-5.0); HEMATOCRIT. 34.2 % (42.0-52.0); HEMOGLOBIN. 11.9 g/dL (14.0-18.0); MEAN CORPUSCULAR HEMOGLOBIN 27.9 pg (28.0-32.0); MEAN CORPUSCULAR VOLUME 80.2 fL (80.0-94.0); MONOCYTES % 10.1 % (2.0-8.0); NEUTROPHILS % 48.1 % (40.0-76.0); PLATELET 202 x1000/uL (130-400); RED BLOOD CELL COUNT 4.26 mill/uL (4.7-6.1); RED CELL DISTRIBUTION WIDTH 13.2 % (11.6-14.6)
[2021-08-08 08:00] VITALS: BP 116/67
[2021-08-08 08:09] LABS: CHLORIDE 101 mEq/L (98-107)
[2021-08-08] MEDS: AMLODIPINE 5MG TABLET PO SCH ×2 (08:14→21:00)
[2021-08-08] MEDS: DOCUSATE SODIUM 100MG CAPSULE PO SCH ×2 (08:14→17:20)
[2021-08-08] MEDS: LISINOPRIL 40MG TABLET PO SCH (08:15)
[2021-08-08] MEDS: LACTULOSE 20G/30ML UDC PO PRN (08:17)
[2021-08-08] MEDS: LIDOCAINE 5% PATCH TOP SCH (08:17)
[2021-08-08] MEDS: METHYL SALICYLATE/MENTHOL CREAM 85GM TOP SCH ×4 (09:00→21:00)
[2021-08-08] MEDS: TRAMADOL 50MG TABLET PO PRN ×2 (10:22→18:10)
[2021-08-08] MEDS ORDERED: NA PHOS,M-B/NA PHOS,DI-BA ENEMA 118ML PR NR (11:12)
[2021-08-08] MEDS ORDERED: BISACODYL 10MG SUPP PR NR (11:15)
[2021-08-08] MEDS: LACTULOSE 20G/30ML UDC PO SCH ×3 (11:28→21:00)
[2021-08-08 20:00] VITALS: BP 109/67
[2021-08-08] MEDS: POLYETHYLENE GLYCOL 3350 (17GM) 1 DOSE PACK PO SCH (22:02)
[2021-08-08] MEDS: ATORVASTATIN CALCIUM 40MG TABLET PO SCH (22:02)
[2021-08-09] MEDS: TRAMADOL 50MG TABLET PO PRN ×2 (02:24→21:38)
[2021-08-09] MEDS: HYDRALAZINE HCL 50MG TABLET PO SCH ×3 (06:00→22:00)
[2021-08-09] MEDS: GABAPENTIN 400MG CAPSULE PO SCH ×3 (06:02→21:37)
[2021-08-09] MEDS: HYDROCODONE/ACETAMINOPHEN 5/325MG TABLET PO PRN ×2 (08:29→14:19)
[2021-08-09] MEDS ORDERED: NA PHOS,M-B/NA PHOS,DI-BA ENEMA 118ML PR PRN (09:00)
[2021-08-09] MEDS: METHYL SALICYLATE/MENTHOL CREAM 85GM TOP SCH ×4 (09:00→21:00)
[2021-08-09 09:07] VITALS: BP 131/81
[2021-08-09] MEDS: AMLODIPINE 5MG TABLET PO SCH ×2 (09:28→21:00)
[2021-08-09] MEDS: LACTULOSE 20G/30ML UDC PO PRN (09:29)
[2021-08-09] MEDS: LISINOPRIL 40MG TABLET PO SCH (09:29)
[2021-08-09] MEDS: DOCUSATE SODIUM 100MG CAPSULE PO SCH ×2 (09:29→17:57)
[2021-08-09] MEDS: LIDOCAINE 5% PATCH TOP SCH (09:30)
[2021-08-09 20:00] VITALS: BP 109/69
[2021-08-09] MEDS: POLYETHYLENE GLYCOL 3350 (17GM) 1 DOSE PACK PO SCH (21:37)
[2021-08-09] MEDS: ATORVASTATIN CALCIUM 40MG TABLET PO SCH (21:38)
[2021-08-10] MEDS: HYDRALAZINE HCL 50MG TABLET PO SCH ×3 (06:00→22:00)
[2021-08-10] MEDS: GABAPENTIN 400MG CAPSULE PO SCH ×3 (06:33→20:53)
[2021-08-10] MEDS: ACETAMINOPHEN 325MG TABLET PO PRN (06:33)
[2021-08-10 08:24] VITALS: BP 123/86
[2021-08-10] MEDS: LACTULOSE 20G/30ML UDC PO PRN (08:45)
[2021-08-10] MEDS: DOCUSATE SODIUM 100MG CAPSULE PO SCH ×2 (08:45→16:08)
[2021-08-10] MEDS: HYDROCODONE/ACETAMINOPHEN 5/325MG TABLET PO PRN ×2 (08:46→16:20)
[2021-08-10] MEDS: AMLODIPINE 5MG TABLET PO SCH ×2 (08:47→20:54)
[2021-08-10] MEDS: LISINOPRIL 40MG TABLET PO SCH (08:47)
[2021-08-10] MEDS: LIDOCAINE 5% PATCH TOP SCH (08:48)
[2021-08-10] MEDS: METHYL SALICYLATE/MENTHOL CREAM 85GM TOP SCH ×2 (09:00→20:50)
[2021-08-10] MEDS: POLYETHYLENE GLYCOL 3350 (17GM) 1 DOSE PACK PO SCH (16:07)
[2021-08-10 20:00] VITALS: BP 129/69
[2021-08-10] MEDS: ATORVASTATIN CALCIUM 40MG TABLET PO SCH (20:53)
[2021-08-11] MEDS: GABAPENTIN 400MG CAPSULE PO SCH ×3 (05:28→23:01)
[2021-08-11] MEDS: HYDROCODONE/ACETAMINOPHEN 5/325MG TABLET PO PRN ×3 (05:37→17:21)
[2021-08-11] MEDS: HYDRALAZINE HCL 50MG TABLET PO SCH (06:00)
[2021-08-11 08:00] VITALS: BP 141/80
[2021-08-11] MEDS: TRAMADOL 50MG TABLET PO PRN (09:25)
[2021-08-11] MEDS: DOCUSATE SODIUM 100MG CAPSULE PO SCH ×2 (10:37→17:11)
[2021-08-11] MEDS: AMLODIPINE 5MG TABLET PO SCH ×2 (10:38→23:01)
[2021-08-11] MEDS: LISINOPRIL 40MG TABLET PO SCH (10:39)
[2021-08-11] MEDS: LIDOCAINE 5% PATCH TOP SCH (10:40)
[2021-08-11] MEDS: LACTULOSE 20G/30ML UDC PO PRN (10:41)
[2021-08-11] MEDS: METHYL SALICYLATE/MENTHOL CREAM 85GM TOP SCH ×4 (10:46→21:00)
[2021-08-11] MEDS ORDERED: MAGNESIUM CITRATE 300ML SOLUTION PO NR (11:00)
[2021-08-11] MEDS: HYDRALAZINE HCL 25MG TABLET PO SCH ×2 (13:49→22:00)
[2021-08-11 20:00] VITALS: BP 123/66
[2021-08-11] MEDS: POLYETHYLENE GLYCOL 3350 (17GM) 1 DOSE PACK PO SCH (21:00)
[2021-08-11] MEDS: ATORVASTATIN CALCIUM 40MG TABLET PO SCH (23:01)
[2021-08-12] MEDS: HYDRALAZINE HCL 25MG TABLET PO SCH ×3 (06:00→21:19)
[2021-08-12] MEDS: GABAPENTIN 400MG CAPSULE PO SCH ×3 (06:26→21:19)
[2021-08-12 08:00] VITALS: BP 134/77
[2021-08-12] MEDS: DOCUSATE SODIUM 100MG CAPSULE PO SCH ×2 (08:32→17:20)
[2021-08-12] MEDS: AMLODIPINE 5MG TABLET PO SCH ×2 (08:34→21:00)
[2021-08-12] MEDS: LISINOPRIL 40MG TABLET PO SCH (08:34)
[2021-08-12] MEDS: LIDOCAINE 5% PATCH TOP SCH (08:35)
[2021-08-12] MEDS: HYDROCODONE/ACETAMINOPHEN 5/325MG TABLET PO PRN ×3 (08:37→21:19)
[2021-08-12] MEDS: METHYL SALICYLATE/MENTHOL CREAM 85GM TOP SCH ×4 (10:13→21:00)
[2021-08-12] MEDS: TRAMADOL 50MG TABLET PO PRN (10:14)
[2021-08-12 20:00] VITALS: BP 134/62
[2021-08-12] MEDS: POLYETHYLENE GLYCOL 3350 (17GM) 1 DOSE PACK PO SCH (21:00)
[2021-08-12] MEDS: ATORVASTATIN CALCIUM 40MG TABLET PO SCH (21:19)
[2021-08-13] MEDS: GABAPENTIN 400MG CAPSULE PO SCH ×2 (06:26→14:33)
[2021-08-13] MEDS: HYDROCODONE/ACETAMINOPHEN 5/325MG TABLET PO PRN ×3 (06:26→15:38)
[2021-08-13] MEDS: HYDRALAZINE HCL 25MG TABLET PO SCH ×2 (06:27→14:33)
[2021-08-13 08:42] LABS: CHLORIDE 105 mEq/L (98-107)
[2021-08-13 08:45] LABS: BASOPHILS % 0.4 % (0.0-2.0); EOSINOPHILS % 7.7 % (0.0-5.0); HEMATOCRIT. 33.5 % (42.0-52.0); HEMOGLOBIN. 11.9 g/dL (14.0-18.0); LYMPHOCYTES % 33.2 % (20.0-50.0); MEAN CORPUSCULAR HEMOGLOBIN 28.3 pg (28.0-32.0); MEAN CORPUSCULAR VOLUME 79.6 fL (80.0-94.0); MEAN PLATELET VOLUME 9.1 fl (7.4-10.4); MONOCYTES % 11.2 % (2.0-8.0); NEUTROPHILS % 47.5 % (40.0-76.0); PLATELET 153 x1000/uL (130-400); RED BLOOD CELL COUNT 4.21 mill/uL (4.7-6.1); RED CELL DISTRIBUTION WIDTH 13.2 % (11.6-14.6)
[2021-08-13] MEDS: DOCUSATE SODIUM 100MG CAPSULE PO SCH ×2 (08:45→16:19)
[2021-08-13] MEDS: AMLODIPINE 5MG TABLET PO SCH (08:46)
[2021-08-13] MEDS: LISINOPRIL 40MG TABLET PO SCH (08:47)
[2021-08-13] MEDS: LACTULOSE 20G/30ML UDC PO PRN (08:48)
[2021-08-13] MEDS: LIDOCAINE 5% PATCH TOP SCH (08:48)
[2021-08-13] MEDS: TRAMADOL 50MG TABLET PO PRN ×2 (08:52→16:20)
[2021-08-13] MEDS: METHYL SALICYLATE/MENTHOL CREAM 85GM TOP SCH ×2 (10:59→14:33)
[2021-08-13] MEDS ORDERED: HYDR-4134 PO (11:04)
[2021-08-13] MEDS ORDERED: LIP40 PO (11:06)
[2021-08-13 12:41] VITALS: BP 120/74
[2021-08-13] MEDS ORDERED: TRAM50TA3 PO (12:48)
[2021-08-13] MEDS ORDERED: HYDR-4001 PO (12:48)
[2021-08-13 16:20] VITALS: BP 120/74
== END 2021-08-13 16:43 | disposition home health service (06) | DRG 552 ==
LOC: 4WST 18:30
PROVIDERS: ADMIT Physical Medicine & Rehabilitation Spinal Cord Injury Medicine; ATTEND Internal Medicine
DX: M48.062 Spinal stenosis, lumbar region with neurogenic claudication (principal); M47.16 Other spondylosis with myelopathy, lumbar region; E44.0 Moderate protein-calorie malnutrition; G82.20 Paraplegia, unspecified; I44.2 Atrioventricular block, complete; J98.11 Atelectasis; F32.1 Major depressive disorder, single episode, moderate; D64.9 Anemia, unspecified; E05.90 Thyrotoxicosis, unspecified without thyrotoxic crisis or storm; E78.5 Hyperlipidemia, unspecified; G89.29 Other chronic pain; I10 Essential (primary) hypertension; K56.41 Fecal impaction; R20.0 Anesthesia of skin; R53.81 Other malaise; M17.11 Unilateral primary osteoarthritis, right knee; E55.9 Vitamin D deficiency, unspecified; Z82.49 Family history of ischemic heart disease and other diseases of the circulatory system; Z86.79 Personal history of other diseases of the circulatory system; Z68.26 Body mass index [BMI] 26.0-26.9, adult
CPT/HCPCS: 36415; 74018; 80048; 80053; 82306; 82607; 82728; 82746; 83540; 83550; 84134; 84443; 85025; 93005; 93970; 97110; 97116; 97162; 97166; 97530; 97535; J2270